=== PATIENT | female | born 1970 | race Caucasian/White ===

== ENCOUNTER 2018-10-30 00:03 | Outpatient (CLI) | payer OTHER ==
[2018-10-30 11:26] LABS: Hemoglobin 12.8 g/dL (12.0-16.0); Mean Corpuscular Hemoglobin 31.1 pg (27.0-31.0); Mean Corpuscular Volume 97.3 fL (78.0-98.0); Platelet Count 229 thou/uL (130-400); RBC Distribution Width 12.1 % (11.5-14.5); Red Blood Cell (RBC) Count 4.13 mill/uL (4.20-5.40)
[2018-10-30 11:51] LABS: Anion Gap 10 mmol/L (10-20); BUN (Urea Nitrogen) 10 mg/dL (7.0-18.7); Calc. Creatinine Clearance 0 mL/min (70-130); Calcium 9.8 mg/dL (7.8-10.44); Carbon Dioxide 30 mmol/L (22-29); Chloride 103 mmol/L (98-107); Estimated GFR-MDRD 80; Glucose 89 mg/dL (70-105); Potassium 4.1 mmol/L (3.5-5.1); Sodium 139 mmol/L (136-145)
== END 2018-10-30 00:04 | disposition home or self-care (01) ==
LOC: LABBT 00:03
PROVIDERS: ATTEND Urology
DX: N39.46 Mixed incontinence (principal); R35.1 Nocturia; R31.9 Hematuria, unspecified; R39.15 Urgency of urination
CPT/HCPCS: 80048; 85027

== ENCOUNTER 2018-11-06 15:34 | Outpatient (CLI) | payer OTHER ==
[~2018-11-06 15:34] MED LIST: Iopamidol 370 76% 100 ML VIAL ONE
--- NOTE | 2018-11-06 16:52 | CT ---
ABDOMEN AND PELVIC CT SCAN WITH AND WITHOUT IV CONTRAST: History: Hematuria. Complete hysterectomy. FINDINGS: The lung bases appear to be clear. Visualized liver, gallbladder, pancreas, and spleen are unremarkab le. Adrenal glands are unremarkable. No renal mass or cyst. No renal calculus or acute obstruction . Urinary bladder appears unremarkable. No bowel obstruction. No abscess, adenopathy, or abnormal flu id collection. Small fat containing umbilical hernia. IMPRESSION: Unremarkable abdomen and pelvic CT scan. No renal mass. No renal calculus or acute obstruction or other significant acute process. Small umbilical fat containing hernia. POS: [facility]
== END 2018-11-06 15:35 | disposition home or self-care (01) ==
LOC: BICCT 15:34
PROVIDERS: ATTEND Urology
DX: R31.9 Hematuria, unspecified (principal); K42.9 Umbilical hernia without obstruction or gangrene; Z90.710 Acquired absence of both cervix and uterus
CPT/HCPCS: 74178; Q9967

== ENCOUNTER 2018-11-07 06:07 | Day surgery (SDC) | payer OTHER ==
[2018-10-30 10:44] VITALS: BMI 24.0
[2018-11-07] MEDS ORDERED: Fentanyl 100 MCG/2 ML VIAL ONE (06:49)
[2018-11-07] MEDS ORDERED: Sodium Chloride 0.9% 10 ML ONE (06:52)
[2018-11-07] MEDS ORDERED: CEFAZOLIN 1 GM VIAL ONE (06:52)
[2018-11-07] MEDS ORDERED: Lidocaine 1% w/Epinephrine 1:100K 20 ML VIAL ONE (06:52)
[2018-11-07] MEDS ORDERED: Bacitracin Zinc Ointment 30 gm TUBE ONE (06:52)
[2018-11-07] MEDS ORDERED: Bupivacaine 0.25% HCL 30 ML VIAL ONE (06:52)
[2018-11-07] MEDS ORDERED: Midazolam HCl 2 mg/2 ml Vial ONE (07:14)
[2018-11-07] MEDS ORDERED: Propofol 1,000 MG/100 ML VIAL IV ONE ×2 (07:24→08:24)
[2018-11-07] MEDS ORDERED: Iothalamate Meglumine 60% 50 ML VIAL FS ONE (08:22)
--- NOTE | 2018-11-07 13:29 | OP ---
DATE OF PROCEDURE: 11/07/2018 PREOPERATIVE DIAGNOSIS: Stress urinary incontinence. POSTOPERATIVE DIAGNOSIS: Stress urinary incontinence. PROCEDURE PERFORMED: Midurethral sling using Solyx with cystoscopy and insertion of wire and Ridgeville catheter in the right ureter. ANESTHESIA: IV sedation with local anesthetic using lidocaine and Marcaine mixture. DRAINS REMAINING: A 16-English Park catheter. BLOOD LOSS: Minimal. COMPLICATIONS: None but the ureteral orifice was very, very slow to excrete effuse but ultimately this was noted and did confirm on the right side. The Ridgeville catheter and wire were placed easily. A retrograde pyelogram could not be performed, because the bed did not accommodate x-ray. INDICATIONS FOR PROCEDURE: The patient is a 48-year-old female, who was followed in the office for stress incontinence and noted to have hypermobility, but with good intrinsic sphincter integrity, so was set up for a mid urethral sling. DESCRIPTION OF PROCEDURE: The patient was brought into the room by Anesthesia, laid on the table in supine position. After receiving IV sedation, her legs were placed in lithotomy position. She was prepped and draped in a sterile fashion. A total of approximately 30 mL of lidocaine and Marcaine mixture, one with epi was then delivered at the urethra and lateral on both sides. A Park catheter was placed. The urethral meatus was slightly narrowed and a snap was gently used to probe and then expand the outside until 16-English catheter could accommodate it without difficulty. The bladder was drained and the catheter was clamped. An Allis was used to elevate the skin and a mid urethral incision was made through the vaginal mucosa on the anterior side with a scalpel. Then using an Allis to hold the vaginal mucosa and Metzenbaum scissors for dissection. I opened the plane laterally toward the obturator foramen, staying close to the vaginal wall and without going more toward the bladder. I also made sure not to buttonhole the vaginal fornix. This was done on the patient's right and then duplicated on the patient's left. Then, with another Allis holding the right vaginal mucosal flap open, after passing the Metzenbaum easily through the lateral dissection, the right arm of the mesh was placed without difficulty, angling to the obturator fascia and then released leaving the mesh in place. With a slight tug on the mesh, I ensured that it was in proper position securely. Then, attention was turned to the patient's left side where in similar fashion, the Metzenbaum had already been dissected this area and the path was followed initially with scissors and then with the mesh itself. This was pushed into place, leaving the applicator device in place. At this point, the Park catheter was removed. The bladder was inspected. A small bruise/mucosal hemorrage was noted in the anterior and superior wall of the bladder. This looked consistent with lidocaine injection as opposed to any concerns for disturbance from the mesh based on the location and visible inspection. Certainly, no mesh was noted in this region. I inspected the rest of the bladder, which was found to be without lesions or injury. A significant amount of time was spent waiting for the ureteral orifices to excrete effuse. I asked anesthesia to increase her IVFs. I finally saw a definitive stream on the left and was pretty sure that I saw it on the right. However, I wanted to make sure with confidence. I wanted to do a retrograde pyelogram but the table was not accommodating for this , so I got a regular wire and easily placed it up to at least the proximal ureter based on spacing. The Pollack catheter followed that over the wire very easily without any concern for resistance or kinking. I put a small amount of fluid into the proximal ureter and then removed the Ridge[place] catheter and wire. I watched as the air and effuse immediately returned and it was clear without hematuria. At this point, I felt confident that there was no concern regarding injury to the right ureteral orifice or ureter. While I was waiting for the ureteral orifice effuse, I did fill her up to test the mesh. She was awake enough to say she was significantly full, and then significant cough showed no leakage. I wanted to fill her even more and in doing so and removing the scope, she was so full, just removing the scope allowed significant effuse to return. At this point, with a significant cough she had a very small amount of leakage with significantly full bladder. At this point, the scope was removed. The bladder decompressed and a small extra push was delivered to the sling on the left side before it was disengaged from its applicator. The sling was examined and showed to be flat and in good position. The Metzenbaum scissors could pass behind it without difficulty. The vaginal wall tissue was reapproximated with 3-0 Vicryl both in running and then two interrupted fashion over. The vaginal vault was irrigated out and then a vaginal pack was placed. The Park catheter would remain overnight to keep the bladder decompressed given the small bruise and slow filling. The park was secured with a cath-secure. The patient was then fully awakened and transferred to the recovery area in stable condition. Job ID: [id number] MTDD
[2018-11-07] MEDS ORDERED: PROPOFOL 200 MG/20 ML VIAL ONE (14:22)
[2018-11-07] MEDS ORDERED: Ketorolac Tromethamine 30 MG/ML VIAL ONE (14:22)
== END 2018-11-07 10:24 | disposition home or self-care (01) ==
LOC: SDC 06:07
PROVIDERS: ATTEND Urology
PROC: 0TSD0ZZ Reposition Urethra, Open Approach (ICD-10-PCS; principal; 2018-11-07)
DX: N39.46 Mixed incontinence (principal); M06.9 Rheumatoid arthritis, unspecified; Z87.891 Personal history of nicotine dependence; Z79.899 Other long term (current) drug therapy
CPT/HCPCS: C1758; C1781; J0690; J2001; J2250; J2704; J3010; Q9961; S0020

== ENCOUNTER 2019-01-12 13:47 | Outpatient (CLI) | payer OTHER ==
--- NOTE | 2019-01-26 14:32 | MMO ---
Bilateral MAMMO Bilat Screen [facility]. CLINICAL HISTORY: Patient is 48 years old and is seen for screening. The patient has no family history of breast cancer. The patient has no personal history of cancer. The patient has a history of bilateral Implants in 2000. There are bilateral silicone gel implants VIEWS: The views performed were: bilateral craniocaudal; bilateral mediolateral oblique; and bilateral Implant displaced. FILMS COMPARED: The present examination has been compared to a prior imaging study performed at [facility] on 12/02/2017. This study has been interpreted with the assistance of computer-aided detection. MAMMOGRAM FINDINGS: The breasts are heterogeneously dense, which could obscure a lesion on mammography. Normal implants are present. There are no suspicious masses, suspicious calcifications, or new areas of architectural distortion. IMPRESSION: THERE IS NO MAMMOGRAPHIC EVIDENCE OF MALIGNANCY. A ROUTINE FOLLOW-UP MAMMOGRAM IN 1 YEAR IS RECOMMENDED. ACR BI-RADS Category 2 - Benign finding MAMMOGRAPHY NOTE: 1. A negative mammogram report should not delay a biopsy if a dominant of clinically suspicious mass is present. 2. Approximately 10% to 15% of breast cancers are not detected by mammography. 3. Adenosis and dense breasts may obscure an underlying neoplasm. Reported by: JORDAN SALMERON MD Electonically Signed: [id number]
== END 2019-01-12 13:48 | disposition home or self-care (01) ==
LOC: SCSMAMMO 13:47
PROVIDERS: ATTEND Family Medicine
DX: Z12.31 Encounter for screening mammogram for malignant neoplasm of breast (principal)
CPT/HCPCS: 77067

== ENCOUNTER 2020-03-18 10:03 | Outpatient (CLI) | payer OTHER ==
--- NOTE | 2020-03-18 11:46 | MMO ---
Bilateral MAMMO Bilat Diag [facility]. CLINICAL HISTORY: Patient is 49 years old and is seen for diagnostic exam,lump or thickening in the lower-inner region of the right breast and pain in both breasts. The patient has no family history of breast cancer. The patient has no personal history of cancer. The patient has a history of bilateral Implants in 1999 - REPLACED and bilateral Implants in 1993. VIEWS: The views performed were: bilateral craniocaudal; bilateral mediolateral oblique; bilateral mediolateral; and bilateral Implant displaced with tomosynthesis. FILMS COMPARED: The present examination has been compared to prior imaging studies performed at [facility] on 01/12/2019, at [facility] on 03/18/2020, and at [facility] on 12/02/2017. This study has been interpreted with the assistance of computer-aided detection. MAMMOGRAM FINDINGS: The breasts are heterogeneously dense, which could obscure a lesion on mammography. Palpable finging is fold in implant on ultrasound There are no suspicious masses, suspicious calcifications, or new areas of architectural distortion. IMPRESSION: THERE IS NO MAMMOGRAPHIC EVIDENCE OF MALIGNANCY. A ROUTINE FOLLOW-UP MAMMOGRAM IN 1 YEAR IS RECOMMENDED. THE RESULTS OF THIS EXAM WERE SENT TO THE PATIENT. ACR BI-RADS Category 2 - Benign finding MAMMOGRAPHY NOTE: 1. A negative mammogram report should not delay a biopsy if a dominant of clinically suspicious mass is present. 2. Approximately 10% to 15% of breast cancers are not detected by mammography. 3. Adenosis and dense breasts may obscure an underlying neoplasm. Reported by: PORFIRIO QURESHI MD Electonically Signed: [id number]
--- NOTE | 2020-03-18 13:57 | ULT ---
BILATERAL BREAST ULTRASOUND: HISTORY: The patient presents with a palpable finding in the right breast at approximately 4 o'clock 7 cm from the nipple. In the left breast, asymmetric density was noted in the inner aspect of the left breast on mammography. FINDINGS: The right breast was evaluated with attention to the palpable finding at 4 o'clock 7 cm from the nipp le. The palpable finding appears to be a fold in the right breast implant accounting for the palpabl e finding. In the left breast at 9 o'clock in the area of breast parenchymal density asymmetry, there is some as ymmetric breast tissue which may well account for the asymmetric tissue seen on mammography. The lef t breast implant has a complicated appearance which has the appearance of internal rupture with some heterogeneous density within the prosthesis. IMPRESSION: 1. BIRADS category 2, benign findings. Continued annual followup screening mammograms. 2. Palpable finding in the right breast is a fold within the right breast prosthesis. 3. The left breast demonstrates asymmetric breast tissue without solid or cystic mass. Heterogeneou s echogenicity within the left breast prosthesis, evidence for internal rupture. BIRADS category 2 , benign findings POS: OFF
== END 2020-03-18 10:04 | disposition home or self-care (01) ==
LOC: BICMAMMO 10:03
PROVIDERS: ATTEND Family Medicine
DX: N64.4 Mastodynia (principal); N64.89 Other specified disorders of breast; Z98.82 Breast implant status
CPT/HCPCS: 77066; G0279

== ENCOUNTER 2022-09-01 12:56 | Emergency (ER) | payer MEDICARE, SELFPAY ==
[~2022-09-01 12:56] MED LIST changes: -Iopamidol 370 76% 100 ML VIAL ONE; +Iopamidol-370 76% 500 ML 1 ML ONE
[2022-09-01 14:57] LABS: #Eosinphils 0.1 thou/uL (0.0-0.7); #Lymphocytes 1.4 thou/uL (1.20-3.40); #Monocytes 0.4 thou/uL (0.11-0.59); #Neutrophils 3.3 thou/uL (1.40-6.50); %Basophils 0.5 % (0.0-1.0); %Eosinophils 2.8 % (0.0-10.0); %Lymphocytes 26.7 % (21.0-51.0); %Monocytes 6.9 % (0.0-10.0); %Neutrophils 63.1 % (42.0-75.0); Hemoglobin 12.7 g/dL (12.0-16.0); Mean Corpuscular HGB CONC 33.7 g/dL (32.0-36.0); Mean Corpuscular Hemoglobin 32.5 pg (27.0-31.0); Mean Corpuscular Volume 96.5 fl (78.0-98.0); Mean Platelet Volume 7.9 fL (7.4-10.4); Platelet Count 235 10x3/uL (130-400); RBC Distribution Width 11.7 % (11.5-14.5); Red Blood Cell (RBC) Count 3.91 mill/uL (4.20-5.40); White Blood Cell (WBC) Count 5.2 10x3/uL (4.8-10.8)
[2022-09-01 15:19] LABS: ALT (SGPT) 14 U/L (8-55); AST (SGOT) 18 U/L (5-34); Albumin 4.1 g/dL (3.5-5.0); Alkaline Phosphatase 55 U/L (40-110); Anion Gap 13 mmol/L (10-20); BUN (Urea Nitrogen) 12 mg/dL (9.8-20.1); Bilirubin, Total 0.3 mg/dL (0.2-1.2); Calc. Creatinine Clearance 0 mL/min (70-130); Calcium 9.1 mg/dL (7.8-10.44); Carbon Dioxide 23 mmol/L (22-29); Chloride 107 mmol/L (98-107); Estimated GFR 96; Globulin 2.9 g/dL (2.4-3.5); Glucose 101 mg/dL (70-105); Potassium 4.1 mmol/L (3.5-5.1); Sodium 139 mmol/L (136-145)
[2022-09-01] MEDS ORDERED: Ketorolac Tromethamine 30 MG/ML VIAL ONE (16:13)
== END 2022-09-01 17:24 | disposition home or self-care (01) ==
LOC: ERS 12:56
DX: M50.20 Other cervical disc displacement, unspecified cervical region (principal)
CPT/HCPCS: 36415; 71260; 80053; 85025; 85379; 96374; J1885; Q9967

== ENCOUNTER 2022-11-17 05:48 | Day surgery (SDC) | payer BC ==
[2022-11-11 10:04] VITALS: BMI 21.1
[2022-11-17] MEDS ORDERED: fentaNYL PF 100 MCG/2 ML SYRINGE ONE (06:09)
[2022-11-17] MEDS ORDERED: Thrombin 5000 UNITS/5 ML VIAL ONE (06:10)
[2022-11-17] MEDS ORDERED: Midazolam HCl 2 mg/2 ml Vial ONE (06:40)
[2022-11-17] MEDS ORDERED: Sodium Chloride 0.9% 100 ML ONE ×2 (06:45→10:56)
[2022-11-17] MEDS ORDERED: CEFAZOLIN 2 GM VIAL ONE ×2 (06:45→10:56)
[2022-11-17] MEDS ORDERED: Rocuronium Bromide 10 MG/ML (10ML VIAL) ONE (07:04)
[2022-11-17] MEDS ORDERED: Lidocaine 1% PF 5 ML VIAL ONE (07:04)
[2022-11-17] MEDS ORDERED: Ondansetron PF 4 MG/2 ML Vial ONE (07:04)
[2022-11-17] MEDS ORDERED: Dexamethasone 20 MG/5 ML VIAL ONE (07:04)
[2022-11-17] MEDS ORDERED: PROPOFOL 200 MG/20 ML VIAL ONE (07:04)
[2022-11-17] MEDS ORDERED: SUGAMMADEX SODIUM 200 MG/2 ML VIAL ONE (08:20)
[2022-11-17] MEDS ORDERED: fentaNYL 50 mcg/mL 1 mL Vial ONE (09:06)
[2022-11-17] MEDS ORDERED: tiZANidine HCl 4 MG TAB ONE (09:33)
[2022-11-17] MEDS ORDERED: Morphine 2 MG/ML VIAL ONE (10:33)
== END 2022-11-17 11:50 | disposition home or self-care (01) ==
LOC: SDC 05:48
PROVIDERS: ATTEND Neurological Surgery
PROC: 0RG20A0 Fusion of 2 or more Cervical Vertebral Joints with Interbody Fusion Device, Anterior Approach, Anterior Column, Open Approach (ICD-10-PCS; principal; 2022-11-17)
DX: M50.121 Cervical disc disorder at C4-C5 level with radiculopathy (principal); M50.122 Cervical disc disorder at C5-C6 level with radiculopathy; Z87.891 Personal history of nicotine dependence; Z79.899 Other long term (current) drug therapy; Z88.8 Allergy status to other drugs, medicaments and biological substances
CPT/HCPCS: C1713; C1889; J1100; J2250; J2272; J2405; J2704; J3010; J3490

== ENCOUNTER 2023-04-07 07:52 | Outpatient (CLI) | payer BC | END 2023-04-07 07:53 | disposition home or self-care (01) | LOC: BICMAMMO 07:52 | PROVIDERS: ATTEND Family Medicine | DX: Z48.812 Encounter for surgical aftercare following surgery on the circulatory system (principal); N64.4 Mastodynia; Z98.82 Breast implant status | CPT/HCPCS: 77066; G0279 ==